=== PATIENT | female | born 1975 | race Two or more races ===

== ENCOUNTER 2016-07-11 11:41 | Emergency (ER) | payer BC ==
[~2016-07-11] VITALS: Ht 106.7 cm; Wt 45.4 kg
[2016-07-11 12:55] VITALS: BP 135/93
--- NOTE | 2016-07-11 13:58 | PHYS DOC ---
Past Medical History Past Medical History: No Pertinent History Past Surgical History: No Surgical History Additional Information: Nonsmoker Alcohol Use: None Drug Use: None Adult General Chief Complaint Chief Complaint: EYE PROBLEMS HPI HPI Patient is a 41 year old female who presents with left eye redness for 3 days. She reports mild itching and mildly blurred vision in the left eye. She denies any pain in the eye. She has not had any drainage or matting of the eyelashes. She denies a foreign body sensation in the eye. She has not had recent cough or vomiting. She denies any injury to the eye. She occasionally wears reading glasses but does not wear contact lenses. She does not have a PCP. Review of Systems Review of Systems Constitutional: Denies fever or chills. [] Eyes: Denies eye pain. Reports left eye redness and blurred vision with itching. HENT: Denies ear pain, nasal congestion or sore throat. [] Respiratory: Denies cough or shortness of breath. [] GI: Denies abdominal pain, nausea, vomiting. [] Integument: Denies rash or skin lesions. [] Neurologic: Denies headache, focal weakness or sensory changes. [] All systems reviewed and negative unless otherwise stated in the HPI. Allergies Allergies Allergies Coded Allergies Type Severity Reaction Last Updated Verified No Known Drug Allergies 01/03/15 No Physical Exam Physical Exam Constitutional: Well developed, well nourished, no acute distress, non-toxic appearance. [] HENT: Normocephalic, atraumatic, bilateral external ears normal, oropharynx moist, no oral exudates, nose normal. [] Eyes: PERRLA, EOMI, no discharge. Left eye subconjunctival hemorrhage on the lateral aspect of the conjunctiva. There is no hyphema. Visual acuity: OS 20/70, OD 20/70, OU 20/70. Neck: Normal range of motion, no tenderness, supple, no stridor. [] Skin: Warm, dry, no erythema, no rash. [] Neurologic: Alert and oriented X 3, normal motor function, normal sensory function, no focal deficits noted. [] Psychologic: Affect normal, judgement normal, mood normal. [] Current Patient Data Vital Signs Vital Signs Date Time Temp Pulse Resp B/P Pulse Ox O2 Delivery O2 Flow Rate FiO2 07/11/16 12:55 97.7 64 18 100 Room Air 97.7 EKG EKG [] Radiology/Procedures Radiology/Procedures [] Course & Med Decision Making Course & Med Decision Making Pertinent Labs and Imaging studies reviewed. (See chart for details) [] Dragon Disclaimer Dragon Disclaimer This electronic medical record was generated, in whole or in part, using a voice recognition dictation system. Departure Departure Impression: Primary Impression: Subconjunctival hemorrhage Disposition: HOME, SELF-CARE Condition: STABLE Referrals: BRANDY DENIS MD Patient Instructions: Subconjunctival Hemorrhage-Brief Additional Instructions: You were seen for a subconjunctival hemorrhage in the left eye. This is a condition in which a small blood vessel his broken. It is a benign condition and will heal on its own. Please follow-up with the eye doctor listed below if you have any complications with the eye. Return to the emergency department if you have any new or concerning symptoms. Problem Qualifiers Primary Impression: Subconjunctival hemorrhage Laterality: left Qualified Code: H11.32 - Conjunctival hemorrhage, left eye ULISES KUMAR Jul 11, 2016 13:58
== END 2016-07-11 14:02 | disposition home or self-care (01) ==
LOC: ER 11:41
DX: H11.32 Conjunctival hemorrhage, left eye (principal)
CPT/HCPCS: 99282